=== PATIENT | male | born 1935 | race Caucasian/White ===

== ENCOUNTER → 2018-10-16 | Outpatient (CLI) | payer OTHER ==
--- NOTE | 2018-10-16 13:25 | PCVCIMAG ---
APPROVED REPORT Study performed: 10/16/2018 11:46:02 Exam: Stress Echocardiogram Indication: Chest pain , Hypertension, Hyperlipidemia Patient Location: Echo lab Stress Nurse: Eda Kwok RN Room #: 1 Status: routine Ht: 5 ft 9 in HR: 60 bpm BP: 156/86 mmHg Rhythm: NSR Medical History Medical History: Hyperlipidemia, HTN Cardiac Risk Factors: HTN, Hyperlipidemia Previous Cardiac Procedures: none Pretest Chest Pain Characteristics: No chest pain Exercise History: Physically active Procedure The patient underwent an Exercise Stress Test using the Jean Marie Protocol. Blood pressure, heart rate, and EKG were monitored. An Echocardiogram was performed by process mold technician in four stages in quad fashion. At peak stress, four selected images were obtained and placed side by side with resting images for comparison. Stress Test Details Stress Test: Exercise stress testing was performed using a Jean Marie protocol. HR Resting HR: 60 bpmMax Heart Rate (APMHR): 135 bpm Max HR Achieved: 133 bpmTarget HR (85% APMHR): 114 bpm % of APMHR: 98 Recovery HR: 73 bpm HR response to stress: Normal HR response to stress BP Resting BP: 156/86 mmHg Max BP: 188/98 mmHg Recovery BP: 158/88 mmHg BP response to stress: Hypertensive at rest,normal incremental increase with exercise ECG Resting ECG: Sinus Rhythm with arrhythmias Stress ECG: Sinus Rhythm,, Atrial Fibrillation ST Change: Non-ischemic Maximum ST Deviation: 0 mm Arrhythmia: None Recovery ECG: Sinus Rhythm Recovery ST Change: Non-ischemic Recovery ST Deviation: 0 mm Recovery Arrhythmia: APC Clinical Reason for Termination: Maximal effort Stress Symptoms: fatigue Exercise duration: 9 min 00 sec Highest Stage Achieved: Stage 3: 3.4 mph at 14% grade. Exercise capacity: 10.1 METs Overall Exercise Capacity for Age: Good Scale: Active Angina Score: None No complications. Stress ECG Conclusion The patient exercised according to the JEAN MARIE protocol for 9:00 mins; achieving a work level of 10.1 METS. The resting heart rate of 60 bpm colton to a maximum heart rate of 133 bpm. This value represent 98% of the maximal, age-predicted heart rate. The resting blood pressure of 156/86 mmHg, colton to a maximum blood pressure of 188/98 mmHg. The exercise test was stopped due to fatigue . Priest Treadmill Score is 9.0 which is Low risk. Pre-Stress Echo The resting Echocardiogram showed normal left ventricular contractility with an estimated Ejection Fraction of about 55-60%. Normal wall motion in all segments on baseline images. Post-Stress Echo The stress Echocardiogram showed normal left ventricular contractility with an estimated Ejection Fraction of about 65-70%. Normal augmentation of wall motion in all segments on post stress images. Clinical No clinical or ECG evidence for ischemia. Conclusion Clinical Response: Non-ischemic Exercise Capacity: Superior Stress ECG Response: Non-ischemic Stress Echo Images: Non-ischemic No clinical, EKG or echocardiographic evidence for ischemia. No echocardiographic evidence for exercise induced ischemia. Normal stress echocardiogram with maximal exercise stress. [place], mildly calcified aortic valve. Moderate aortic insufficiency. <Conclusion> No clinical, EKG or echocardiographic evidence for ischemia. No echocardiographic evidence for exercise induced ischemia. Normal stress echocardiogram with maximal exercise stress. [place], mildly calcified aortic valve. Moderate aortic insufficiency.
== END | disposition home or self-care (01) ==
LOC: PCVCIMAG 11:36
PROVIDERS: ATTEND Internal Medicine
DX: R07.9 Chest pain, unspecified (principal); I10 Essential (primary) hypertension; E78.5 Hyperlipidemia, unspecified
CPT/HCPCS: 93325; 93351